=== PATIENT | female | born 1930 | race Caucasian/White ===

== ENCOUNTER 2017-06-08 20:53 | Emergency (ER) | payer MEDICARE, OTHER, MEDICAID ==
[2017-06-09 00:58] LABS: ADD MAN DIFF? NO
[2017-06-09 01:00] LABS: BASOPHILS % 0.3 % (0.0-2.0); EOSINOPHILS # 0.1 10^3/ul (0.0-0.5); HEMATOCRIT 41.6 % (37.0-47.0); HEMOGLOBIN 14.1 g/dl (12.0-16.0); LYMPHOCYTES # 2.8 10^3/ul (0.8-2.9); LYMPHOCYTES % 34.5 % (15.0-51.0); MEAN CORPUSCULAR HEMOGLOBIN 31.5 pg (29.0-33.0); MEAN CORPUSCULAR HGB CONC 33.9 g/dl (32.0-37.0); MEAN CORPUSCULAR VOLUME 92.9 fl (82.0-101.0); MEAN PLATELET VOLUME 11.2 fl (7.4-10.4); MONOCYTE # 0.9 10^3/ul (0.3-0.9); MONOCYTES % 10.9 % (0.0-11.0); NEUTROPHIL # 4.2 10^3/ul (1.6-7.5); NEUTROPHILS % 52.9 % (39.0-77.0); PLATELET COUNT 149 10^3/UL (140-415); RED BLOOD COUNT 4.48 10^6/ul (4.20-5.40); RED CELL DISTRIBUTION WIDTH 13.5 % (11.5-14.5)
[2017-06-09] MEDS: VANCOMYCIN 1 GM (PMX) 250 ML IVPB (01:12)
[2017-06-09] MEDS: morphine 2 MG INJ IV (01:12)
[2017-06-09] MEDS: ONDANSETRON 4 MG INJ IV (01:12)
[2017-06-09 01:39] LABS: ALANINE AMINOTRANSFERASE 31 IU/L (13-69); ALBUMIN 3.7 g/dl (3.3-4.9); ALBUMIN/GLOBULIN RATIO 0.88; ALKALINE PHOSPHATASE 110 IU/L (42-121); ANION GAP 14 (8-16); ASPARTATE AMINO TRANSFERASE 51 IU/L (15-46); BILIRUBIN,INDIRECT 0.2 mg/dl (0-1.1); BILIRUBIN,TOTAL 0.2 mg/dl (0.2-1.3); BLOOD UREA NITROGEN 33 mg/dl (7-20); CALCIUM 10.5 mg/dl (8.4-10.2); CARBON DIOXIDE 34 mmol/L (21-31); CHLORIDE 95 mmol/L (97-110); CREATININE 0.81 mg/dl (0.44-1.00); GLUCOSE 218 mg/dl (70-220); POTASSIUM 3.7 mmol/L (3.5-5.1); SODIUM 139 mmol/L (135-144); TOTAL PROTEIN 7.9 g/dl (6.1-8.1)
== END 2017-06-09 04:12 | disposition home or self-care (01) ==
LOC: FTE 20:53 → E/R 06-09 04:12
DX: L03.115 Cellulitis of right lower limb (principal); B35.3 Tinea pedis; I10 Essential (primary) hypertension; E11.9 Type 2 diabetes mellitus without complications; Z79.84 Long term (current) use of oral hypoglycemic drugs
CPT/HCPCS: 36415; 73630; 80053; 85025; 96374; 96375; 99284-25

== ENCOUNTER 2017-07-02 13:04 | Inpatient (IN) | payer OTHER, MEDICARE ==
[2017-07-02] MEDS: SODIUM CHLORIDE 0.9% 1L BAG IV* (17:14)
[2017-07-02] MEDS: CEFTRIAXONE 1 GM/50 ML (PMX) 50 ML IVPB (17:14)
[2017-07-02 17:18] LABS: ADD MAN DIFF? NO
[2017-07-02 17:34] LABS: BASOPHILS % 0.3 % (0.0-2.0); EOSINOPHILS # 0.1 10^3/ul (0.0-0.5); EOSINOPHILS % 0.7 % (0.0-7.0); HEMATOCRIT 43.5 % (37.0-47.0); HEMOGLOBIN 14.8 g/dl (12.0-16.0); LYMPHOCYTES # 3.9 10^3/ul (0.8-2.9); LYMPHOCYTES % 32.6 % (15.0-51.0); MEAN CORPUSCULAR HEMOGLOBIN 31.2 pg (29.0-33.0); MEAN CORPUSCULAR VOLUME 91.6 fl (82.0-101.0); MEAN PLATELET VOLUME 11.3 fl (7.4-10.4); MONOCYTE # 1.4 10^3/ul (0.3-0.9); NEUTROPHIL # 6.5 10^3/ul (1.6-7.5); PLATELET COUNT 166 10^3/UL (140-415); RED BLOOD COUNT 4.75 10^6/ul (4.20-5.40); RED CELL DISTRIBUTION WIDTH 13.6 % (11.5-14.5)
[2017-07-02] MEDS: PIPER-TAZO 3.375 GM IV (PMX) 100 ML IVPB (17:43)
[2017-07-02 17:49] LABS: INR 1.01; PARTIAL THROMBOPLASTIN TIME 32.3 Sec (25.0-35.0); PROTIME 13.4 Sec (11.9-14.9)
[2017-07-02 17:52] LABS: ALANINE AMINOTRANSFERASE 37 IU/L (13-69); ALBUMIN 3.8 g/dl (3.3-4.9); ALBUMIN/GLOBULIN RATIO 0.97; ALKALINE PHOSPHATASE 134 IU/L (42-121); ANION GAP 19 (8-16); ASPARTATE AMINO TRANSFERASE 77 IU/L (15-46); BLOOD UREA NITROGEN 42 mg/dl (7-20); CALCIUM 9.5 mg/dl (8.4-10.2); CARBON DIOXIDE 26 mmol/L (21-31); CHLORIDE 100 mmol/L (97-110); CREATININE 1.85 mg/dl (0.44-1.00); GLUCOSE 165 mg/dl (70-220); LIPASE 73 U/L (23-300); POTASSIUM 4.2 mmol/L (3.5-5.1); SODIUM 141 mmol/L (135-144); TOTAL PROTEIN 7.7 g/dl (6.1-8.1)
[2017-07-02] MEDS: IBUPROFEN 200 MG TAB PO (17:59)
[2017-07-02 18:01] LABS: LACTIC ACID 2.5 mmol/L (0.5-2.0)
[2017-07-02 18:04] LABS: TROPONIN-I < 0.012 ng/ml (0.00-0.12)
[2017-07-02 18:24] LABS: ADD UMIC YES; UR ASCORBIC ACID NEGATIVE (NEGATIVE); UR BILIRUBIN (Dip) NEGATIVE (NEGATIVE); UR BLOOD (Dip) NEGATIVE (NEGATIVE); UR CLARITY TURBID (CLEAR); UR COLOR AMBER (YELLOW); UR GLUCOSE (Dip) 1+ mg/dL (NEGATIVE); UR KETONES (Dip) NEGATIVE (NEGATIVE); UR LEUKOCYTE ESTERASE (Dip) NEGATIVE Leu/ul (NEGATIVE); UR MUCUS FEW /HPF (NONE SEEN); UR NITRITE (Dip) NEGATIVE (NEGATIVE); UR RBC 5 /HPF (0-5); UR SPECIFIC GRAVITY (Dip) 1.023 (1.003-1.030); UR TOTAL PROTEIN (Dip) 1+ mg/dl (NEGATIVE); UR UROBILINOGEN (Dip) 1+ mg/dL (NEGATIVE); UR WBC 8 /HPF (0-5)
[2017-07-02 19:24] LABS: LACTIC ACID 1.6 mmol/L (0.5-2.0)
[2017-07-02] MEDS ORDERED: VANCOMYCIN IV PER PHARMACY XX ×2 (19:30→20:00)
[2017-07-02] MEDS ORDERED: DOCUSATE SODIUM 100 MG CAP PO (20:00)
[2017-07-02] MEDS ORDERED: ACETAMINOPHEN 325 MG TAB PO (20:00)
[2017-07-02] MEDS ORDERED: NACL 0.9% 3 ML SYG IV (20:00)
[2017-07-02] MEDS ORDERED: MAGNESIUM HYDROXIDE 30ML CUP PO (20:00)
[2017-07-02] MEDS ORDERED: BISACODYL 10 MG SUPP PR (20:00)
[2017-07-02] MEDS ORDERED: ONDANSETRON 4 MG INJ IV (20:00)
[2017-07-02 20:32] LABS: C-REACTIVE PROTEIN 2.3 mg/dl (0.0-0.9)
[2017-07-02] MEDS: INSULIN ASPART [NOVOLOG] 3 ML PEN SC (21:00)
[2017-07-02] MEDS: HYDROCORTISONE 2.5% 20 GM CR TOP (21:00)
[2017-07-02] MEDS ORDERED: LEVOFLOXACIN 750MG/D5W (PMX) 150 ML IVPB (21:00)
[2017-07-02] MEDS ORDERED: GLUCOSE GEL 15 GRAM TUBE BUCCAL (21:30)
[2017-07-02] MEDS ORDERED: GLUCAGON 1 MG INJ IM (21:30)
[2017-07-02] MEDS ORDERED: DEXTROSE 50% 50 ML SYRINGE IV (21:30)
[2017-07-02] MEDS ORDERED: GLUCOSE GEL 15 GRAM TUBE PO ×2 (21:30)
[2017-07-02 21:32] LABS: ERYTHROCYTE SEDIMENTATION RATE 30 mm/Hr (0-30)
[2017-07-02] MEDS: CEVIMELINE 30 MG CAP PO (23:31)
[2017-07-02] MEDS: SOD CHLORIDE 0.9% 1,000 ML IV (23:31)
[2017-07-02] MEDS: MEMANTINE 10 MG TAB PO ×2 (23:32→23:46)
[2017-07-02] MEDS: FAMOTIDINE 20 MG TAB PO (23:32)
[2017-07-02] MEDS: HEPARIN 5,000 UNIT/0.5 ML VIAL SC (23:41)
[2017-07-02] MEDS: CLOTRIMAZOLE 1% 30 GM CR TOP (23:45)
[2017-07-03 01:02] LABS: GLUCOSE 138 mg/dl (70-220)
[2017-07-03] MEDS: LEVOFLOXACIN 750MG/D5W (PMX) 150 ML IVPB (02:31)
[2017-07-03] MEDS: VANCOMYCIN 1.25 GM in SOD CHLORIDE 0.9% 250 ML IVPB (04:41)
[2017-07-03] MEDS: LEVOTHYROXINE 25 MCG TAB PO (06:05)
[2017-07-03 06:06] LABS: ADD MAN DIFF? NO
[2017-07-03 06:14] LABS: BASOPHILS % 0.2 % (0.0-2.0); EOSINOPHILS # 0.1 10^3/ul (0.0-0.5); EOSINOPHILS % 1.7 % (0.0-7.0); HEMATOCRIT 33.3 % (37.0-47.0); HEMOGLOBIN 11.4 g/dl (12.0-16.0); LYMPHOCYTES # 2.1 10^3/ul (0.8-2.9); MEAN CORPUSCULAR HEMOGLOBIN 31.3 pg (29.0-33.0); MEAN CORPUSCULAR HGB CONC 34.2 g/dl (32.0-37.0); MEAN CORPUSCULAR VOLUME 91.5 fl (82.0-101.0); MEAN PLATELET VOLUME 11.3 fl (7.4-10.4); MONOCYTE # 0.8 10^3/ul (0.3-0.9); NEUTROPHIL # 3.4 10^3/ul (1.6-7.5); NEUTROPHILS % 52.8 % (39.0-77.0); PLATELET COUNT 101 10^3/UL (140-415); RED BLOOD COUNT 3.64 10^6/ul (4.20-5.40); RED CELL DISTRIBUTION WIDTH 13.7 % (11.5-14.5)
[2017-07-03 06:14] LABS: WHITE BLOOD COUNT 6.5 10^3/ul (4.8-10.8)
[2017-07-03 06:38] LABS: ALANINE AMINOTRANSFERASE 29 IU/L (13-69); ALBUMIN 2.4 g/dl (3.3-4.9); ALKALINE PHOSPHATASE 87 IU/L (42-121); ANION GAP 10 (8-16); ASPARTATE AMINO TRANSFERASE 55 IU/L (15-46); BLOOD UREA NITROGEN 30 mg/dl (7-20); CALCIUM 8.1 mg/dl (8.4-10.2); CARBON DIOXIDE 24 mmol/L (21-31); CHLORIDE 107 mmol/L (97-110); CHOL/HDL RATIO 3.4 RATIO; CHOLESTEROL 86 mg/dl (100-200); CREATININE 0.97 mg/dl (0.44-1.00); GLUCOSE 114 mg/dl (70-220); HDL CHOLESTEROL 25 mg/dl (33-92); LDL CHOLESTEROL,CALCULATED 50 mg/dl; MAGNESIUM 1.7 mg/dl (1.7-2.5); PHOSPHORUS 2.7 mg/dl (2.5-4.9); POTASSIUM 3.8 mmol/L (3.5-5.1); SODIUM 137 mmol/L (135-144); TOTAL PROTEIN 5.8 g/dl (6.1-8.1); TRIGLYCERIDES 55 mg/dl (0-149)
[2017-07-03 06:40] LABS: INR 1.14; PROTIME 14.8 Sec (11.9-14.9); PT RATIO 1.2
[2017-07-03 06:54] LABS: FREE T4 (FREE THYROXINE) 1.15 ng/dl (0.85-1.93)
[2017-07-03 07:06] LABS: THYROID STIMULATING HORMONE 0.768 MIU/L (0.465-4.680)
[2017-07-03] MEDS: INSULIN ASPART [NOVOLOG] 3 ML PEN SC ×4 (08:05→20:39)
[2017-07-03] MEDS: DEXTROSE 50% 50 ML SYRINGE IV (08:10)
[2017-07-03 08:11] LABS: HEMOGLOBIN A1C 7.4 % (0-5.9)
[2017-07-03] MEDS: DOCUSATE SODIUM 100 MG CAP PO (08:25)
[2017-07-03] MEDS: CLOPIDOGREL 75 MG TAB PO (08:25)
[2017-07-03] MEDS: CEVIMELINE 30 MG CAP PO ×3 (08:26→20:32)
[2017-07-03] MEDS: predniSONE 1 MG TAB PO (08:26)
[2017-07-03] MEDS: DULOXETINE 30 MG CAP DR PO (08:26)
[2017-07-03] MEDS: DONEPEZIL 10 MG TAB PO (08:26)
[2017-07-03] MEDS: SOD CHLORIDE 0.9% 1,000 ML IV ×3 (08:30→20:40)
[2017-07-03] MEDS: HYDROCORTISONE 2.5% 20 GM CR TOP ×2 (09:00→21:00)
[2017-07-03] MEDS: CLOTRIMAZOLE 1% 30 GM CR TOP ×2 (09:00→21:00)
[2017-07-03] MEDS: HEPARIN 5,000 UNIT/0.5 ML VIAL SC ×2 (10:02→20:38)
[2017-07-03] MEDS: traMADol 50 MG TAB PO (11:25)
[2017-07-03] MEDS: DRONABINOL 2.5 MG CAP PO ×2 (13:33→20:44)
[2017-07-03] MEDS: FAMOTIDINE 20 MG TAB PO (20:31)
[2017-07-03] MEDS: MEMANTINE 10 MG TAB PO (20:32)
[2017-07-04] MEDS: traMADol 50 MG TAB PO ×3 (03:06→22:20)
[2017-07-04] MEDS: VANCOMYCIN 750 MG in DEXTROSE 5% 150 ML IVPB (05:32)
[2017-07-04] MEDS: LEVOTHYROXINE 25 MCG TAB PO (05:40)
[2017-07-04 05:53] LABS: ADD MAN DIFF? NO
[2017-07-04 06:02] LABS: ABNORMAL IP MESSAGE 1; BASOPHILS % 0.3 % (0.0-2.0); EOSINOPHILS # 0.3 10^3/ul (0.0-0.5); EOSINOPHILS % 3.4 % (0.0-7.0); HEMOGLOBIN 11.3 g/dl (12.0-16.0); LYMPHOCYTES # 1.6 10^3/ul (0.8-2.9); LYMPHOCYTES % 18.2 % (15.0-51.0); MEAN CORPUSCULAR HEMOGLOBIN 31.7 pg (29.0-33.0); MEAN CORPUSCULAR HGB CONC 34.2 g/dl (32.0-37.0); MEAN CORPUSCULAR VOLUME 92.7 fl (82.0-101.0); MEAN PLATELET VOLUME 11.4 fl (7.4-10.4); MONOCYTE # 0.6 10^3/ul (0.3-0.9); MONOCYTES % 6.8 % (0.0-11.0); NEUTROPHIL # 6.1 10^3/ul (1.6-7.5); NEUTROPHILS % 70.8 % (39.0-77.0); PLATELET COUNT 99 10^3/UL (140-415); RED BLOOD COUNT 3.56 10^6/ul (4.20-5.40); RED CELL DISTRIBUTION WIDTH 13.6 % (11.5-14.5)
[2017-07-04 06:02] LABS: WHITE BLOOD COUNT 8.6 10^3/ul (4.8-10.8)
[2017-07-04 06:10] LABS: MAGNESIUM 1.5 mg/dl (1.7-2.5)
[2017-07-04 06:10] LABS: PHOSPHORUS 1.7 mg/dl (2.5-4.9)
[2017-07-04 06:14] LABS: ANION GAP 9 (8-16); BLOOD UREA NITROGEN 22 mg/dl (7-20); CARBON DIOXIDE 24 mmol/L (21-31); CHLORIDE 106 mmol/L (97-110); CREATININE 0.65 mg/dl (0.44-1.00); GLUCOSE 54 mg/dl (70-220); POTASSIUM 4.1 mmol/L (3.5-5.1); SODIUM 135 mmol/L (135-144)
[2017-07-04 06:17] LABS: POSITIVE DIFF @See below
[2017-07-04] MEDS: DONEPEZIL 10 MG TAB PO (08:00)
[2017-07-04] MEDS: CEVIMELINE 30 MG CAP PO ×3 (08:00→20:10)
[2017-07-04] MEDS: DOCUSATE SODIUM 100 MG CAP PO (08:00)
[2017-07-04] MEDS: CLOPIDOGREL 75 MG TAB PO (08:00)
[2017-07-04] MEDS: DULOXETINE 30 MG CAP DR PO (08:00)
[2017-07-04] MEDS: DRONABINOL 2.5 MG CAP PO ×3 (08:01→20:15)
[2017-07-04] MEDS: HYDROCORTISONE 2.5% 20 GM CR TOP ×2 (08:01→20:18)
[2017-07-04] MEDS: predniSONE 1 MG TAB PO (08:01)
[2017-07-04] MEDS: CLOTRIMAZOLE 1% 30 GM CR TOP ×2 (08:01→20:18)
[2017-07-04] MEDS: HEPARIN 5,000 UNIT/0.5 ML VIAL SC ×2 (08:04→20:15)
[2017-07-04] MEDS: INSULIN ASPART [NOVOLOG] 3 ML PEN SC ×4 (08:15→20:15)
[2017-07-04] MEDS: SOD CHLORIDE 0.9% 1,000 ML IV (09:30)
[2017-07-04] MEDS: MEMANTINE 10 MG TAB PO ×2 (09:31→20:09)
[2017-07-04] MEDS: MAGNESIUM SULFATE 4 GM/100 ML 100 ML IVPB (10:55)
[2017-07-04] MEDS ORDERED: VITAMIN A & D 5 GM OINT PACKET TOP (12:02)
[2017-07-04] MEDS: DEXTROSE 5%-0.9% NACL 1,000 ML IV (12:34)
[2017-07-04] MEDS: POTASSIUM PHOSPHATE 15 MM in SOD CHLORIDE 0.9% 250 ML IVPB (14:58)
[2017-07-04] MEDS: FAMOTIDINE 20 MG TAB PO (20:09)
[2017-07-05] MEDS: LEVOFLOXACIN 750MG/D5W (PMX) 150 ML IVPB (00:13)
[2017-07-05] MEDS: DEXTROSE 5%-0.9% NACL 1,000 ML IV ×3 (01:00→13:30)
[2017-07-05] MEDS: VANCOMYCIN 750 MG in DEXTROSE 5% 150 ML IVPB (05:31)
[2017-07-05] MEDS: LEVOTHYROXINE 25 MCG TAB PO (05:32)
[2017-07-05 06:04] LABS: ADD MAN DIFF? NO
[2017-07-05 06:14] LABS: BASOPHILS % 0.2 % (0.0-2.0); EOSINOPHILS # 0.3 10^3/ul (0.0-0.5); EOSINOPHILS % 5.1 % (0.0-7.0); HEMATOCRIT 34.7 % (37.0-47.0); HEMOGLOBIN 11.9 g/dl (12.0-16.0); LYMPHOCYTES # 1.3 10^3/ul (0.8-2.9); LYMPHOCYTES % 24.2 % (15.0-51.0); MEAN CORPUSCULAR HEMOGLOBIN 31.6 pg (29.0-33.0); MEAN CORPUSCULAR HGB CONC 34.3 g/dl (32.0-37.0); MEAN CORPUSCULAR VOLUME 92.3 fl (82.0-101.0); MONOCYTE # 0.7 10^3/ul (0.3-0.9); MONOCYTES % 12.6 % (0.0-11.0); NEUTROPHIL # 3.2 10^3/ul (1.6-7.5); NEUTROPHILS % 57.5 % (39.0-77.0); PLATELET COUNT 103 10^3/UL (140-415); RED BLOOD COUNT 3.76 10^6/ul (4.20-5.40); RED CELL DISTRIBUTION WIDTH 13.2 % (11.5-14.5)
[2017-07-05 06:14] LABS: WHITE BLOOD COUNT 5.5 10^3/ul (4.8-10.8)
[2017-07-05 06:29] LABS: ANION GAP 11 (8-16); BLOOD UREA NITROGEN 12 mg/dl (7-20); CALCIUM 7.9 mg/dl (8.4-10.2); CARBON DIOXIDE 25 mmol/L (21-31); CHLORIDE 106 mmol/L (97-110); CREATININE 0.56 mg/dl (0.44-1.00); GLUCOSE 78 mg/dl (70-220); POTASSIUM 4.4 mmol/L (3.5-5.1); SODIUM 138 mmol/L (135-144)
[2017-07-05 06:32] LABS: PHOSPHORUS 1.7 mg/dl (2.5-4.9)
[2017-07-05] MEDS: INSULIN ASPART [NOVOLOG] 3 ML PEN SC ×4 (08:15→20:22)
[2017-07-05] MEDS: DOCUSATE SODIUM 100 MG CAP PO (08:59)
[2017-07-05] MEDS: CLOPIDOGREL 75 MG TAB PO (08:59)
[2017-07-05] MEDS: DONEPEZIL 10 MG TAB PO (08:59)
[2017-07-05] MEDS: predniSONE 1 MG TAB PO (09:00)
[2017-07-05] MEDS: CEVIMELINE 30 MG CAP PO ×3 (09:00→20:29)
[2017-07-05] MEDS: DRONABINOL 2.5 MG CAP PO ×3 (09:00→20:28)
[2017-07-05] MEDS: INFLUENZA VIRUS VACCINE 0.5 ML (DISPENSING) IM* (09:00)
[2017-07-05] MEDS: MEMANTINE 10 MG TAB PO (09:00)
[2017-07-05] MEDS: DULOXETINE 30 MG CAP DR PO (09:00)
[2017-07-05] MEDS: HEPARIN 5,000 UNIT/0.5 ML VIAL SC ×2 (09:01→20:30)
[2017-07-05] MEDS: HYDROCORTISONE 2.5% 20 GM CR TOP ×2 (09:02→20:40)
[2017-07-05] MEDS: CLOTRIMAZOLE 1% 30 GM CR TOP ×2 (09:02→20:39)
[2017-07-05] MEDS: COLLAGENASE 30 GM TUBE TOP (17:30)
[2017-07-05] MEDS: traMADol 50 MG TAB PO (17:31)
[2017-07-05] MEDS: FAMOTIDINE 20 MG TAB PO (20:28)
[2017-07-06] MEDS: DEXTROSE 5%-0.9% NACL 1,000 ML IV ×4 (00:26→16:00)
[2017-07-06] MEDS: COLLAGENASE 30 GM TUBE TOP ×2 (05:55→09:00)
[2017-07-06] MEDS: LEVOTHYROXINE 25 MCG TAB PO (06:00)
[2017-07-06 06:08] LABS: ADD MAN DIFF? NO
[2017-07-06 06:22] LABS: BASOPHILS % 0.2 % (0.0-2.0); EOSINOPHILS # 0.3 10^3/ul (0.0-0.5); EOSINOPHILS % 4.5 % (0.0-7.0); HEMATOCRIT 36.9 % (37.0-47.0); HEMOGLOBIN 12.7 g/dl (12.0-16.0); LYMPHOCYTES # 1.7 10^3/ul (0.8-2.9); LYMPHOCYTES % 30.2 % (15.0-51.0); MEAN CORPUSCULAR HEMOGLOBIN 31.4 pg (29.0-33.0); MEAN CORPUSCULAR HGB CONC 34.4 g/dl (32.0-37.0); MEAN CORPUSCULAR VOLUME 91.1 fl (82.0-101.0); MEAN PLATELET VOLUME 10.8 fl (7.4-10.4); MONOCYTE # 0.7 10^3/ul (0.3-0.9); MONOCYTES % 12.2 % (0.0-11.0); NEUTROPHIL # 2.9 10^3/ul (1.6-7.5); NEUTROPHILS % 52.5 % (39.0-77.0); PLATELET COUNT 110 10^3/UL (140-415); RED BLOOD COUNT 4.05 10^6/ul (4.20-5.40); RED CELL DISTRIBUTION WIDTH 13.3 % (11.5-14.5)
[2017-07-06 06:22] LABS: WHITE BLOOD COUNT 5.5 10^3/ul (4.8-10.8)
[2017-07-06 06:57] LABS: ANION GAP 10 (8-16); BLOOD UREA NITROGEN 6 mg/dl (7-20); CALCIUM 8.1 mg/dl (8.4-10.2); CARBON DIOXIDE 28 mmol/L (21-31); CHLORIDE 107 mmol/L (97-110); CREATININE 0.53 mg/dl (0.44-1.00); GLUCOSE 119 mg/dl (70-220); POTASSIUM 3.7 mmol/L (3.5-5.1); SODIUM 141 mmol/L (135-144)
[2017-07-06 06:59] LABS: VANCOMYCIN,TROUGH 5.9 ug/ml (10.0-20.0)
[2017-07-06 07:01] LABS: PHOSPHORUS 1.7 mg/dl (2.5-4.9)
[2017-07-06 07:01] LABS: MAGNESIUM 1.8 mg/dl (1.7-2.5)
[2017-07-06] MEDS: VANCOMYCIN 750 MG in DEXTROSE 5% 150 ML IVPB ×2 (07:02→18:38)
[2017-07-06] MEDS: INSULIN ASPART [NOVOLOG] 3 ML PEN SC ×4 (07:59→20:49)
[2017-07-06] MEDS: DRONABINOL 2.5 MG CAP PO ×3 (09:00→20:43)
[2017-07-06] MEDS: DULOXETINE 30 MG CAP DR PO (09:00)
[2017-07-06] MEDS: HEPARIN 5,000 UNIT/0.5 ML VIAL SC ×2 (09:00→20:45)
[2017-07-06] MEDS: predniSONE 1 MG TAB PO (09:00)
[2017-07-06] MEDS: CEVIMELINE 30 MG CAP PO ×3 (09:00→20:43)
[2017-07-06] MEDS: DONEPEZIL 10 MG TAB PO (09:00)
[2017-07-06] MEDS: CLOPIDOGREL 75 MG TAB PO (09:00)
[2017-07-06] MEDS: DOCUSATE SODIUM 100 MG CAP PO (09:00)
[2017-07-06] MEDS: HYDROCORTISONE 2.5% 20 GM CR TOP ×2 (09:00→20:40)
[2017-07-06] MEDS: CLOTRIMAZOLE 1% 30 GM CR TOP ×2 (09:00→20:40)
[2017-07-06] MEDS: MAGNESIUM SULFATE 2 GM/50 ML 50 ML IVPB (12:10)
[2017-07-06] MEDS: POTASSIUM PHOSPHATE 30 MM in SOD CHLORIDE 0.9% 250 ML IVPB (17:58)
[2017-07-06] MEDS: morphine 2 MG INJ IV (18:39)
[2017-07-06] MEDS: FAMOTIDINE 20 MG TAB PO (20:43)
[2017-07-07] MEDS: LEVOFLOXACIN 750MG/D5W (PMX) 150 ML IVPB (00:01)
[2017-07-07] MEDS: morphine 2 MG INJ IV (01:50)
[2017-07-07] MEDS: DEXTROSE 5%-0.9% NACL 1,000 ML IV ×3 (03:00→18:46)
[2017-07-07] MEDS: LEVOTHYROXINE 25 MCG TAB PO (05:05)
[2017-07-07] MEDS: COLLAGENASE 30 GM TUBE TOP ×2 (05:21→08:15)
[2017-07-07] MEDS: VANCOMYCIN 750 MG in DEXTROSE 5% 150 ML IVPB ×3 (05:30→18:45)
[2017-07-07 06:11] LABS: ADD MAN DIFF? NO
[2017-07-07 06:20] LABS: BASOPHILS % 0.2 % (0.0-2.0); EOSINOPHILS # 0.2 10^3/ul (0.0-0.5); EOSINOPHILS % 3.6 % (0.0-7.0); HEMOGLOBIN 12.4 g/dl (12.0-16.0); LYMPHOCYTES # 1.6 10^3/ul (0.8-2.9); LYMPHOCYTES % 25.5 % (15.0-51.0); MEAN CORPUSCULAR HEMOGLOBIN 31.1 pg (29.0-33.0); MEAN CORPUSCULAR HGB CONC 33.5 g/dl (32.0-37.0); MEAN CORPUSCULAR VOLUME 92.7 fl (82.0-101.0); MEAN PLATELET VOLUME 10.6 fl (7.4-10.4); MONOCYTE # 0.7 10^3/ul (0.3-0.9); NEUTROPHIL # 3.6 10^3/ul (1.6-7.5); NEUTROPHILS % 58.4 % (39.0-77.0); PLATELET COUNT 121 10^3/UL (140-415); RED BLOOD COUNT 3.99 10^6/ul (4.20-5.40); RED CELL DISTRIBUTION WIDTH 13.1 % (11.5-14.5)
[2017-07-07 06:20] LABS: WHITE BLOOD COUNT 6.2 10^3/ul (4.8-10.8)
[2017-07-07 06:46] LABS: PHOSPHORUS 3.1 mg/dl (2.5-4.9)
[2017-07-07 06:46] LABS: MAGNESIUM 1.8 mg/dl (1.7-2.5)
[2017-07-07 06:57] LABS: ANION GAP 12 (8-16); BLOOD UREA NITROGEN 5 mg/dl (7-20); CALCIUM 7.8 mg/dl (8.4-10.2); CARBON DIOXIDE 27 mmol/L (21-31); CHLORIDE 106 mmol/L (97-110); CREATININE 0.48 mg/dl (0.44-1.00); GLUCOSE 117 mg/dl (70-220); POTASSIUM 3.6 mmol/L (3.5-5.1); SODIUM 141 mmol/L (135-144)
[2017-07-07] MEDS: INSULIN ASPART [NOVOLOG] 3 ML PEN SC ×4 (07:56→20:13)
[2017-07-07] MEDS: CLOPIDOGREL 75 MG TAB PO (08:12)
[2017-07-07] MEDS: predniSONE 1 MG TAB PO (08:13)
[2017-07-07] MEDS: DOCUSATE SODIUM 100 MG CAP PO (08:13)
[2017-07-07] MEDS: CEVIMELINE 30 MG CAP PO ×3 (08:13→11:59)
[2017-07-07] MEDS: DONEPEZIL 10 MG TAB PO (08:13)
[2017-07-07] MEDS: DULOXETINE 30 MG CAP DR PO ×3 (08:14→09:00)
[2017-07-07] MEDS: HEPARIN 5,000 UNIT/0.5 ML VIAL SC ×2 (08:15→20:17)
[2017-07-07] MEDS: CLOTRIMAZOLE 1% 30 GM CR TOP ×2 (08:15→20:14)
[2017-07-07] MEDS: HYDROCORTISONE 2.5% 20 GM CR TOP ×2 (08:15→20:14)
[2017-07-07] MEDS: DRONABINOL 2.5 MG CAP PO ×3 (08:59→20:13)
[2017-07-07] MEDS ORDERED: VITAMIN A & D 5 GM OINT PACKET TOP (11:00)
[2017-07-07] MEDS ORDERED: HYDROCODONE/APAP (5/325) TAB PO (17:00)
[2017-07-07 18:00] LABS: VANCOMYCIN,TROUGH 13.4 ug/ml (10.0-20.0)
[2017-07-07] MEDS: AMITRIPTYLINE 50 MG TAB PO (20:12)
[2017-07-07] MEDS: FAMOTIDINE 20 MG TAB PO (20:13)
[2017-07-08] MEDS: DEXTROSE 5%-0.9% NACL 1,000 ML IV (04:00)
[2017-07-08] MEDS: VANCOMYCIN 750 MG in DEXTROSE 5% 150 ML IVPB (05:22)
[2017-07-08 06:07] LABS: ADD MAN DIFF? NO
[2017-07-08 06:24] LABS: BASOPHILS % 0.2 % (0.0-2.0); EOSINOPHILS # 0.2 10^3/ul (0.0-0.5); EOSINOPHILS % 3.5 % (0.0-7.0); HEMATOCRIT 34.7 % (37.0-47.0); HEMOGLOBIN 11.8 g/dl (12.0-16.0); LYMPHOCYTES # 2.1 10^3/ul (0.8-2.9); LYMPHOCYTES % 35.5 % (15.0-51.0); MEAN CORPUSCULAR HEMOGLOBIN 31.2 pg (29.0-33.0); MEAN CORPUSCULAR VOLUME 91.8 fl (82.0-101.0); MEAN PLATELET VOLUME 10.3 fl (7.4-10.4); MONOCYTE # 0.9 10^3/ul (0.3-0.9); MONOCYTES % 14.8 % (0.0-11.0); NEUTROPHIL # 2.8 10^3/ul (1.6-7.5); NEUTROPHILS % 45.7 % (39.0-77.0); PLATELET COUNT 105 10^3/UL (140-415); RED BLOOD COUNT 3.78 10^6/ul (4.20-5.40); RED CELL DISTRIBUTION WIDTH 13.5 % (11.5-14.5)
[2017-07-08 06:49] LABS: ANION GAP 9 (8-16); BLOOD UREA NITROGEN 3 mg/dl (7-20); CARBON DIOXIDE 25 mmol/L (21-31); CHLORIDE 111 mmol/L (97-110); CREATININE 0.47 mg/dl (0.44-1.00); GLUCOSE 146 mg/dl (70-220); POTASSIUM 3.3 mmol/L (3.5-5.1); SODIUM 142 mmol/L (135-144)
[2017-07-08 07:16] LABS: PHOSPHORUS 2.2 mg/dl (2.5-4.9)
[2017-07-08 07:16] LABS: MAGNESIUM 1.7 mg/dl (1.7-2.5)
[2017-07-08] MEDS: INSULIN ASPART [NOVOLOG] 3 ML PEN SC ×2 (08:10→12:15)
[2017-07-08] MEDS: HEPARIN 5,000 UNIT/0.5 ML VIAL SC (08:38)
[2017-07-08] MEDS: DONEPEZIL 10 MG TAB PO (08:38)
[2017-07-08] MEDS: CLOPIDOGREL 75 MG TAB PO (08:38)
[2017-07-08] MEDS: DOCUSATE SODIUM 100 MG CAP PO (08:38)
[2017-07-08] MEDS: HYDROCORTISONE 2.5% 20 GM CR TOP (08:39)
[2017-07-08] MEDS: COLLAGENASE 30 GM TUBE TOP ×2 (08:39→13:03)
[2017-07-08] MEDS: CLOTRIMAZOLE 1% 30 GM CR TOP (08:39)
[2017-07-08] MEDS: DRONABINOL 2.5 MG CAP PO ×2 (08:45→12:11)
[2017-07-08] MEDS: POTASSIUM CHLORIDE (SR) 20 MEQ TAB PO (10:05)
[2017-07-08] MEDS ORDERED: LIDOCAINE 1% (MDV) 20 ML INJ (16:27)
== END 2017-07-08 13:40 | disposition home health service (06) | DRG 300 ==
LOC: MS2 07-04 05:00 → E/R 13:04 → MS2 19:24
PROC: B410YZZ Fluoroscopy of Abdominal Aorta using Other Contrast (ICD-10-PCS; principal; 2017-07-06 14:38)
DX: E11.51 Type 2 diabetes mellitus with diabetic peripheral angiopathy without gangrene (principal); E87.2 Acidosis; N17.9 Acute kidney failure, unspecified; I70.261 Atherosclerosis of native arteries of extremities with gangrene, right leg; E11.621 Type 2 diabetes mellitus with foot ulcer; L03.115 Cellulitis of right lower limb; E11.42 Type 2 diabetes mellitus with diabetic polyneuropathy; L97.513 Non-pressure chronic ulcer of other part of right foot with necrosis of muscle; E11.649 Type 2 diabetes mellitus with hypoglycemia without coma; F03.90 Unspecified dementia, unspecified severity, without behavioral disturbance, psychotic disturbance, mood disturbance, and anxiety; I10 Essential (primary) hypertension; Z79.84 Long term (current) use of oral hypoglycemic drugs
CPT/HCPCS: 36415; 71045; 73630; 73718; 75710; 80048; 80053; 80061; 80202; 81001; 82947; 82962; 83036; 83605; 83690; 83735; 84100; 84439; 84443; 84484; 85025; 85610; 85651; 85730; 86140; 87040; 87070; 87086; 93005; 93976; 96374; 96375; 99291-25